=== PATIENT | female | born 1985 | race Caucasian/White ===

== ENCOUNTER 2018-07-01 16:25 | Emergency (ER) | payer OTHER ==
--- NOTE | 2018-07-01 18:40 | ED ---
Upper Extremity Pain - HPI Summary HPI Summary: 33-year-old female presents with numbness to bilateral hands for the past couple months. she states greatest in her right thumb. She is right-handed. She works as a math and sciences department chair. She states sometimes her hands go numb while she is working an is unable to use them. she has sharp pain and weakness with the numbness occasionally. No tingling. He states the pain sometimes radiates up her arm. Denies any neck pain. No injury. She is currently 27 weeks . Normal movement. Denies any contractions or vaginal bleeding. No injury. - History of Current Complaint Chief Complaint: EDGeneral Stated Complaint: PAIN AND SWELLING IN BOTH HANDS PER PT Time Seen by Provider: 07/01/18 17:36 - Allergies/Home Medications Allergies/Adverse Reactions: Allergies Allergy/AdvReac Type Severity Reaction Status Date / Time Sulfa (Sulfonamide Allergy Nausea And Verified 07/01/18 16:44 Antibiotics) Vomiting PMH/Surg Hx/FS Hx/Imm Hx Endocrine/Hematology History: Denies: Hx Anticoagulant Therapy Cardiovascular History: Denies: Hx Myocardial Infarction Infectious Disease History: No Infectious Disease History: Denies: Traveled Outside the [place] in Last 30 Days - Family History Known Family History: Positive: Non-Contributory - Social History Alcohol Use: None Substance Use Type: Reports: None Smoking Status (MU): Smoker, Current Status Unknown Review of Systems Negative: Fever Negative: Chest Pain Negative: Shortness Of Breath Positive: Other - parasethesia in hands All Other Systems Reviewed And Are Negative: Yes Physical Exam Triage Information Reviewed: Yes Vital Signs On Initial Exam: Initial Vitals Temp Pulse Resp BP Pulse Ox 97.2 F 82 20 121/57 97 07/01/18 16:41 07/01/18 16:41 07/01/18 16:41 07/01/18 16:41 07/01/18 16:41 Vital Signs Reviewed: Yes Appearance: Positive: Well-Appearing Skin: Positive: Warm, Dry Head/Face: Positive: Normal Head/Face Inspection Eyes: Positive: Normal, EOMI, JUAN CARLOS, Conjunctiva Clear ENT: Positive: Normal ENT inspection, Pharynx normal, TMs normal Respiratory/Lung Sounds: Positive: Clear to Auscultation, Breath Sounds Present Cardiovascular: Positive: Normal, RRR Musculoskeletal: Positive: Strength/ROM Intact - bilteral hands, Other - grossly sensation decreased in right thumb, capillary refill<2 secs, neg phalens , nontender neck, full ROM neck, able to oppose all fingers Neurological: Positive: Normal Psychiatric: Positive: Normal Diagnostics - Vital Signs Vital Signs Temp Pulse Resp BP Pulse Ox 07/01/18 16:41 97.2 F 82 20 121/57 97 - Laboratory Result Diagrams: 07/01/18 18:51 Lab Statement: Any lab studies that have been ordered have been reviewed, and results considered in the medical decision making process. Course/Dx - Course Course Of Treatment: 33-year-old female presents with numbness to bilateral hands for the past couple months. she states greatest in her right thumb. She is right-handed. She works as a math and sciences department chair. She states sometimes her hands go numb while she is working an is unable to use them. she has sharp pain and weakness with the numbness occasionally. No tingling. He states the pain sometimes radiates up her arm. Denies any neck pain. No injury. She is currently 27 weeks . Normal movement. Denies any contractions or vaginal bleeding. No injury. On exam full ROM and strength bilateral hands. Biceps reflex intact. Sensation grossly in her right thumb. Negative Phalen's. Left thumb decreased sensation in right thumb grossly. We'll give referral to orthopedic. Told to follow up with OB. Patient understands agrees with plan. - Diagnoses Differential Diagnosis/HQI/PQRI: Positive: Sprain, Other - electrolyte abnormality, carpel tunnel Provider Diagnoses: Paresthesia of both hands Discharge - Sign-Out/Discharge Documenting (check all that apply): Patient Departure Patient Received Moderate/Deep Sedation with Procedure: No - Discharge Plan Condition: Good Disposition: HOME Patient Education Materials: Paresthesia (ED) Referrals: [facility] [place] [facility] [Outside] Pierce Vines MD [Medical Doctor] - Additional Instructions: follow up with ortho or ob Return to ED if develop any new or worsening symptoms - Billing Disposition and Condition Condition: GOOD Disposition: Home
[2018-07-01 18:59] LABS: ABS Basophils 0 10^3/ul (0-0.2); ABS Eosinophils 0.1 10^3/ul (0-0.6); ABS Lymphocytes 1.5 10^3/ul (1.0-4.8); ABS Monocytes 0.7 10^3/ul (0-0.8); ABS Neutrophils 5.5 10^3/ul (1.5-7.7); ABS Nucleated RBC 0 10^3/ul; Eosinophil % 1.7 %; Hematocrit 32 % (33-41); Hemoglobin 10.4 g/dL (12.0-16.0); Lymphocyte % 19.4 %; Mean Corpuscular HGB Conc 33 g/dL (31-36); Mean Corpuscular Hemoglobin 27 pg (27-31); Mean Corpuscular Volume 81 fL (80-97); Mean Platelet Volume 7.2 fL (7.4-10.4); Nucleated Red Blood Cells % 0; Platelet Count 246 10^3/uL (150-450); Red Blood Count 3.91 10^6 /uL (3.70-4.87); Red Cell Distribution Width 15 % (10.5-15)
[2018-07-01 19:17] LABS: C Reactive Protein 9.57 mg/L (<8.01); Magnesium 1.7 mg/dL (1.9-2.7)
[2018-07-01] MEDS ORDERED: Magnesium Chloride EC TAB* 64 MG PO ONE (19:29)
[2018-07-01 20:00] LABS: Albumin 3.1 g/dL (3.2-5.2); Albumin/Globulin Ratio 1.1 (1-3); BUN/Creatinine Ratio 16.9 (8-20); Calcium 8.8 mg/dL (8.6-10.3); EGFR African American 141.2 (>60); EGFR Non-African American 116.7 (>60); Globulin 2.7 g/dL (2-4); Potassium 4.9 mmol/L (3.5-5.0); Total Bilirubin 0.4 mg/dL (0.2-1.0); Total Protein 5.8 g/dL (6.4-8.9)
[2018-07-01 20:04] LABS: TSH (Thyroid Stimulating Horm) 1.93 mcIU/mL (0.34-5.60)
[2018-07-01 20:32] VITALS: BP 106/67
== END 2018-07-01 20:31 | disposition home or self-care (01) ==
LOC: ED 16:25
DX: O26.93 Pregnancy related conditions, unspecified, third trimester (principal); R20.2 Paresthesia of skin; Z3A.27 27 weeks gestation of pregnancy; Z88.2 Allergy status to sulfonamides
CPT/HCPCS: 36415; 80053; 83735; 84443; 85025; 86140; 99282; A9270-GY

== ENCOUNTER 2018-09-20 05:52 | Inpatient (IN) | payer OTHER ==
[2018-09-18 14:33] LABS: ABS Eosinophils 0.1 10^3/ul (0-0.6); ABS Lymphocytes 1.7 10^3/ul (1.0-4.8); ABS Monocytes 0.8 10^3/ul (0-0.8); ABS Neutrophils 5.4 10^3/ul (1.5-7.7); Eosinophil % 1.8 %; Hematocrit 31 % (35-47); Hemoglobin 10.4 g/dL (12.0-16.0); Lymphocyte % 21.3 %; Mean Corpuscular HGB Conc 34 g/dL (31-36); Mean Corpuscular Hemoglobin 26 pg (27-31); Mean Corpuscular Volume 77 fL (80-97); Mean Platelet Volume 8.4 fL (7.4-10.4); Nucleated Red Blood Cells % 0.1; Platelet Count 195 10^3/uL (150-450); Red Blood Count 3.98 10^6 /uL (3.70-4.87); Red Cell Distribution Width 16 % (10-15); White Blood Count 8.1 10^3/uL (3.5-10.8)
--- NOTE | 2018-09-20 04:29 | HP ---
General Information - Reason for Visit at 39 weeks EGA with Breech presentation. - General Information Maternal Age: 33 Grav: 2 Para: 0 SAB: 1 IEA: 0 Estimated Due Date: 09/27/18 Determined By: LMP Gestational Age in Weeks/Days: 39 weeks Maternal Blood Type and Rh: O Positive - Results this Serology/RPR Result: Non-Reactive Rubella Result: Non-Immune HBsAg Result: Negative HIV Result: Negative GBS Culture Result: Negative Past Medical History Delivery History: See Records Pertinent Past Medical History: See Records Past Medical History Comment: Opioid use disorder on Subutex Depression/Anxiety PTSD/ADHD Obesity Pertinent Past Surgical History: See Records Pertinent Family History: See Records - Antepartal Records Antepartal Records: Reviewed, Complicated by: - Breech presentation, on Subutex for Opioid use disorder Review of Systems Constitutional: Comfortable CV Complaint: No Respiratory: Shortness of Breath: No Gastrointestinal: No Nausea/Vomiting, Normal Bowel Movement Genitourinary: No Dysuria, No Bleeding, No Leaking Fluid Musculoskeletal: No Complaint, No Epigastric Pain Neurological: No Headache, No Visual Changes Movement: Normal Exam Allergies/Adverse Reactions: Allergies Sulfa (Sulfonamide Antibiotics) Allergy (Verified 09/16/18 11:13) Hives Temp 98.8 BP 130/70 P 72 RR 18 Lab Values - Entire Visit: Laboratory Tests 09/18/18 09/18/18 14:06 14:06 WBC 8.1 RBC 3.98 Hgb 10.4 L Hct 31 L MCV 77 L MCH 26 L MCHC 34 RDW 16 H Plt Count 195 MPV 8.4 Neut % (Auto) 67.1 Lymph % (Auto) 21.3 [place] % (Auto) 9.4 Eos % (Auto) 1.8 Baso % (Auto) 0.4 Absolute Neuts (auto) 5.4 Absolute Lymphs (auto) 1.7 Absolute Monos (auto) 0.8 Absolute Eos (auto) 0.1 Absolute Basos (auto) 0.0 Absolute Nucleated RBC 0.0 Nucleated RBC % 0.1 Blood Type O Positive Antibody Screen Negative - Measurements Height: 5 ft 4 in Weight: 215 lb Weight in lbs: 215.957181 Body Mass Index (BMI): 36.8 Pre- Weight: 140 lb Weight Gained This : 75 lbs and 0 ozs - Exam Breast: Breast Exam Deferred CVA: No CVA Tenderness Extremities: No Edema Heart: Normal Rhythm/Heart Sounds HEENT: No Significant Findings Lungs: Clear Bilaterally Rectal: Rectal Exam Deferred Reflexes: DTR 2+ Thyroid: No Thyromegaly - Abdominal Exam Abdomen Exam: Non-Tender, Fundal Height Consistent with Dates - Breech presentation confirmed by ultrasound Targeted Exam Findings See L&D Outpatient Visit Provider Note for Findings: N/A Cervical Exam: Closed Effacement: Thick Station: -2 Presenting Part: Breech Membrane Status: Intact Bleeding/Discharge: None EFM Findings - External Monitor Findings Baseline Heart Rate: 140 Contractions: None Assessment/Plan - Assessment at term Breech presentation. - Obstetrical Risk Factors Obstetrical Risk Factors: Breech - Plan Plan: IV Hydration, Antibiotic Prophylaxis, C/S Delivery - Date/Time of Admission Date of Admission: 09/20/18 Time of Admission: 07:00
[~2018-09-20 05:52] MED LIST: Buffered Lidocaine 1% SYRIN* 1 ML/SYRINGE INTRADERM ONE; Lactated Ringers 1000 ML Bag* 1,000 ML IV ONE; Lactated Ringers 1000 ML Bag* 1,000 ML IV SCH; ceFOXitin 2 GM IVPREMIX* 2 GM/50 ML BAG IVPB ONE
[2018-09-20] MEDS ORDERED: Lactated Ringers 1000 ML Bag* 1,000 ML IV SCH ×2 (06:00→10:00)
[2018-09-20] MEDS ORDERED: Sodium Citrate/Citric Acid* 15 ML UDC PO ONE (06:00)
[2018-09-20 07:15] LABS: Urine Benzodiazepine Screen None Detected (None Detect); Urine Opiates Screen None Detected (None Detect)
[2018-09-20] MEDS ORDERED: OXYTOCIN* 10 UNITS/ML 1 ML VIAL ONE (07:50)
[2018-09-20] MEDS ORDERED: Morphine PF AMP (0.5MG/ML)* 5 MG/10 ML AMP ONE (07:52)
[2018-09-20] MEDS ORDERED: Phenylephrine 40 MCG/ML SYRINGE ONE (08:22)
[2018-09-20] MEDS ORDERED: Ketorolac INJ* 30 MG/ML 1 ML VIAL ONE (08:50)
[2018-09-20] MEDS ORDERED: diPHENhydraMINE IV* 50 MG/ML 1 ml VIAL (BENADRYL) ONE (08:50)
[2018-09-20] MEDS ORDERED: EPHEDrine (Pressors)* 50 MG/ML VIAL ONE (08:50)
[2018-09-20] MEDS ORDERED: Dexamethasone IV* 4 MG/ML 1 ML (4 MG) ONE (08:50)
[2018-09-20] MEDS ORDERED: Ondansetron INJ* 2 MG/ML VIAL ONE (08:52)
[2018-09-20] MEDS ORDERED: Dibucaine 1% 28.35 GM TUBE PR PRN (09:36)
[2018-09-20] MEDS ORDERED: Tetan/Diph/Pertus SYR(Tdap)* 0.5 ML SYR(BOOSTRIX) use SYR IM ONE (09:36)
[2018-09-20] MEDS ORDERED: Witch Hazel PAD* JAR TOPICAL PRN (09:36)
[2018-09-20] MEDS ORDERED: Zolpidem TAB* 5 MG PO PRN (09:36)
[2018-09-20] MEDS ORDERED: Glycerin ADULT SUPP PR PRN (09:36)
[2018-09-20] MEDS ORDERED: Levalbuterol 0.63MG/3ML NEB* UNIT OF USE INH PRN (09:38)
[2018-09-20] MEDS ORDERED: Scopolamine 1.5 mg* PATCH TRANSDERM PRN (09:38)
[2018-09-20] MEDS ORDERED: Acetaminophen TAB* 325 MG PO PRN (09:38)
[2018-09-20] MEDS ORDERED: Naloxone* 0.4 MG/ML 1 ML VIAL IV PRN ×2 (09:38)
[2018-09-20] MEDS ORDERED: diPHENhydraMINE IV* 50 MG/ML 1 ml VIAL (BENADRYL) IV PRN (09:38)
[2018-09-20] MEDS ORDERED: DiMENhydriNATE IV* 50 MG/ML VIAL IV PUSH PRN (09:38)
[2018-09-20] MEDS ORDERED: Ondansetron INJ* 2 MG/ML VIAL IV PRN (09:38)
[2018-09-20] MEDS ORDERED: Acetaminophen IV 1GM/100ML * 1,000 MG/100 ML VIAL IVPB ONE (09:41)
[2018-09-20] MEDS ORDERED: ARIPiprazole TAB* 5 MG PO SCH (10:00)
[2018-09-20] MEDS: Buprenorphine TAB* 2 MG TAB.SL SL SCH (10:19)
[2018-09-20] MEDS: Sertraline* 50 MG TAB PO SCH (10:20)
[2018-09-20] MEDS: Simethicone TAB* 80 MG TAB.CHEW PO SCH ×3 (14:00→21:06)
[2018-09-20] MEDS ORDERED: Buprenorphine TAB* 2 MG TAB.SL SL PRN (14:53)
[2018-09-20] MEDS: Docusate CAP* 100 MG PO SCH ×2 (15:04→21:06)
[2018-09-20] MEDS: Ketorolac INJ* 30 MG/ML 1 ML VIAL IV PRN ×2 (15:52→22:15)
[2018-09-20] MEDS: Nicotine PATCH 14 MG/24 HR* PATCH TRANSDERM SCH (15:59)
[2018-09-20] MEDS: Acetaminophen IV 1GM/100ML * 100 ML IVPB SCH (18:21)
[2018-09-20] MEDS: Gabapentin CAP(*) 300 MG PO SCH (21:07)
[2018-09-20] MEDS: cloNIDine TAB* 0.1 MG PO SCH (21:07)
[2018-09-20] MEDS: ARIPiprazole TAB* 5 MG PO SCH (21:28)
[2018-09-21] MEDS: Acetaminophen IV 1GM/100ML * 100 ML IVPB SCH ×5 (00:58→18:00)
[2018-09-21] MEDS: Ketorolac INJ* 30 MG/ML 1 ML VIAL IV PRN ×3 (03:58→16:05)
[2018-09-21] MEDS: Nicotine Patch Removal NOTE FOLLOW UP SCH ×2 (06:00→16:00)
[2018-09-21 08:09] LABS: ABS Eosinophils 0.1 10^3/ul (0-0.6); ABS Lymphocytes 1.7 10^3/ul (1.0-4.8); ABS Monocytes 0.8 10^3/ul (0-0.8); ABS Neutrophils 7.6 10^3/ul (1.5-7.7); Eosinophil % 0.7 %; Hematocrit 25 % (35-47); Hemoglobin 8.2 g/dL (12.0-16.0); Lymphocyte % 16.4 %; Mean Corpuscular HGB Conc 33 g/dL (31-36); Mean Corpuscular Hemoglobin 26 pg (27-31); Mean Corpuscular Volume 79 fL (80-97); Mean Platelet Volume 8.4 fL (7.4-10.4); Platelet Count 173 10^3/uL (150-450); Red Blood Count 3.14 10^6 /uL (3.70-4.87); Red Cell Distribution Width 16 % (10-15); White Blood Count 10.2 10^3/uL (3.5-10.8)
[2018-09-21] MEDS: cloNIDine TAB* 0.1 MG PO SCH ×2 (09:00→21:25)
[2018-09-21] MEDS: Nicotine PATCH 14 MG/24 HR* PATCH TRANSDERM SCH (09:00)
[2018-09-21] MEDS: Gabapentin CAP(*) 300 MG PO SCH ×2 (09:00→21:23)
[2018-09-21] MEDS: Ferrous Gluconate TAB* 324 MG TAB PO SCH ×2 (09:00→21:25)
[2018-09-21] MEDS: Docusate CAP* 100 MG PO SCH ×3 (09:00→21:24)
[2018-09-21] MEDS: Simethicone TAB* 80 MG TAB.CHEW PO SCH ×4 (09:00→21:24)
[2018-09-21] MEDS: Sertraline* 50 MG TAB PO SCH (09:02)
[2018-09-21] MEDS: Buprenorphine TAB* 2 MG TAB.SL SL SCH (09:15)
--- NOTE | 2018-09-21 10:20 | PN ---
Progress Note - Progress Note Date of Service: 09/21/18 Note: S NO C/O'S. O AFEBRILE Vital Signs: Temp Pulse Resp BP Pulse Ox 97.9 F 94 17 117/58 98 09/21/18 08:00 09/21/18 08:00 09/21/18 09:15 09/21/18 08:00 09/21/18 08:00 FUNDUS FIRM LOCHIA LITE WOUND NON-TENDER Laboratory Results - last 24 hr 09/21/18 07:20 WBC 10.2 RBC 3.14 L Hgb 8.2 L Hct 25 L MCV 79 L MCH 26 L MCHC 33 RDW 16 H Plt Count 173 MPV 8.4 Neut % (Auto) 75.0 Lymph % (Auto) 16.4 [place] % (Auto) 7.7 Eos % (Auto) 0.7 Baso % (Auto) 0.2 Absolute Neuts (auto) 7.6 Absolute Lymphs (auto) 1.7 Absolute Monos (auto) 0.8 Absolute Eos (auto) 0.1 Absolute Basos (auto) 0.0 Absolute Nucleated RBC 0.0 Nucleated RBC % 0.0 A. PT STABLE P CONTINUE ORDERS,D/C IN 2-3 DAYS.
[2018-09-21] MEDS: Acetaminophen TAB* 325 MG PO PRN (21:25)
[2018-09-21] MEDS: ARIPiprazole TAB* 5 MG PO SCH (21:25)
[2018-09-22] MEDS: Ibuprofen TAB* 600 MG PO PRN ×4 (00:11→20:59)
[2018-09-22] MEDS: Acetaminophen TAB* 325 MG PO PRN ×4 (01:34→17:48)
[2018-09-22] MEDS: Acetaminophen IV 1GM/100ML * 100 ML IVPB SCH (05:49)
[2018-09-22] MEDS: Ferrous Gluconate TAB* 324 MG TAB PO SCH ×2 (08:59→20:59)
[2018-09-22] MEDS: Simethicone TAB* 80 MG TAB.CHEW PO SCH ×4 (08:59→21:01)
[2018-09-22] MEDS: Docusate CAP* 100 MG PO SCH ×3 (08:59→20:58)
[2018-09-22] MEDS: Sertraline* 50 MG TAB PO SCH (09:00)
[2018-09-22] MEDS: Buprenorphine TAB* 2 MG TAB.SL SL SCH (09:13)
[2018-09-22] MEDS: Gabapentin CAP(*) 300 MG PO SCH ×2 (09:30→21:00)
[2018-09-22] MEDS: cloNIDine TAB* 0.1 MG PO SCH ×2 (09:30→21:00)
[2018-09-22] MEDS: Nicotine PATCH 14 MG/24 HR* PATCH TRANSDERM SCH (11:29)
[2018-09-22] MEDS: Nicotine Patch Removal NOTE FOLLOW UP SCH (11:29)
[2018-09-22] MEDS ORDERED: Measles, Mumps,Rubella VACC* 0.5 ML/VIAL SUBCUT ONE (13:17)
--- NOTE | 2018-09-22 13:24 | PN ---
Progress Note - Progress Note Date of Service: 09/22/18 Note: S NO C/O'S. O Vital Signs: Temp Pulse Resp BP Pulse Ox 98.7 F 79 16 118/66 96 09/22/18 10:14 09/22/18 10:14 09/22/18 10:14 09/22/18 10:14 09/22/18 10:14 ABD SOFT WOUND NON-TENDER. LOCHIA LITE. A PT DOING WELL PLAN D/C IN AM.
[2018-09-22] MEDS: ARIPiprazole TAB* 5 MG PO SCH (20:59)
[2018-09-23] MEDS: Acetaminophen TAB* 325 MG PO PRN (00:14)
[2018-09-23] MEDS: Ibuprofen TAB* 600 MG PO PRN ×2 (03:11→09:25)
[2018-09-23 07:53] VITALS: BP 112/65
[2018-09-23] MEDS: Buprenorphine TAB* 2 MG TAB.SL SL SCH (09:02)
[2018-09-23] MEDS: Sertraline* 50 MG TAB PO SCH (09:04)
[2018-09-23] MEDS: Ferrous Gluconate TAB* 324 MG TAB PO SCH (09:05)
[2018-09-23] MEDS: Docusate CAP* 100 MG PO SCH (09:05)
[2018-09-23] MEDS: Simethicone TAB* 80 MG TAB.CHEW PO SCH (09:05)
[2018-09-23] MEDS: cloNIDine TAB* 0.1 MG PO SCH (09:27)
[2018-09-23] MEDS: Nicotine Patch Removal NOTE FOLLOW UP SCH (09:35)
[2018-09-23] MEDS: Nicotine PATCH 14 MG/24 HR* PATCH TRANSDERM SCH (09:35)
[2018-09-23] MEDS ORDERED: Scopolamine PATCH Remove* 1 NOTE MISC PATCH OFF PRN (09:39)
--- NOTE | 2018-09-23 10:45 | OP ---
OPERATIVE REPORT: DATE OF OPERATION: 09/20/18 DATE OF : 83 SURGEON: Baljinder Pierson MD ORTHOPEDIC NURSE PRACTITIONER SURGEON: Dr. Tinajero. ANESTHESIA: Spinal. PRE-OP DIAGNOSES: at 39 weeks, breech presentation. POST-OP DIAGNOSES: at 39 weeks, breech presentation. OPERATIVE PROCEDURE: Primary low-transverse section via breech extraction. ESTIMATED BLOOD LOSS: 600 cc. FLUIDS: She received 1800 cc of IV crystalloid fluid. URINE OUTPUT: Clear. FINDINGS: Delivery of a viable female infant with a weight of 7 pounds 3 ounces with Apgars of 6 and 8 over clear fluid in enrique breech presentation. 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 T he placenta was grossly intact with a three- vessel cord noted. Adnexa, bowel and bladder were all w ithin normal limits. DESCRIPTION OF PROCEDURE: The patient was taken to the operating room where she was identified. She was placed on the operating table where a spinal anesthetic was obtained without difficulty. She wa s prepped and draped in a normal sterile fashion in a supine position with a leftward tilt. A Pfanne nstiel skin incision was then made with a knife and carried through to the underlying layer of fascia . The fascia was nicked in the midline and extended laterally with curved Rizzo scissors. The fascia was then grasped superiorly and inferiorly with Angie clamps and dissected off sharply from the rec uts muscle. The rectus muscle was in the midline bluntly. The peritoneum was identified, grasped with pickups, and entered sharply with Metzenbaum scissors and extended superiorly and inferi lara sharply. A bladder blade was inserted into the patient's abdomen and bladder flap was created u sing Metzenbaum scissors, over which the bladder blade was then reinserted. A low-transverse uterine incision was made with a knife and extended laterally with bandage scissors. The 's breech wa s then grasped and was delivered through a breech extraction atraumatically. The 's cord was t hen clamped and cut. The infant was handed off to waiting store deli manager. Cord bloods were obtained. The placenta was removed manually. The uterus was then exteriorized and cleared of all clots and de bris using moist laparotomy sponges. All the sponges were removed from the patient's uterus. The [place] rine incision was then closed using 0-Polysorb suture in a running locked fashion with a second imbri cating layer of 0-Polysorb suture with good hemostasis noted. The uterus was then returned to the me tient's abdomen. The gutters were then cleared of all clot and debris using moist laparotomy sponges . All the sponges were removed from the patient's abdomen. The peritoneum was then closed using 3-0 Polysorb suture in a running fashion. The fascia was closed using 0-Polysorb suture in a running fa shion and the skin was closed with a 4-0 Monocryl subcuticular stitch. The patient tolerated the pro cedure well. Sponge, lap, and needle counts were correct x2. She was then transferred to the [facility] room area in stable condition. [id number]/[facility] #: [id number]
== END 2018-09-23 13:00 | disposition home or self-care (01) | DRG 540 ==
LOC: MCHOB 05:52
PROVIDERS: ADMIT Obstetrics & Gynecology; ATTEND Obstetrics & Gynecology
PROC: 4A1HXCZ Monitoring of Products of Conception, Cardiac Rate, External Approach (ICD-10-PCS; 2018-09-20)
PROC: 10D00Z1 Extraction of Products of Conception, Low, Open Approach (ICD-10-PCS; principal; 2018-09-20 07:45)
DX: O32.1XX0 Maternal care for breech presentation, not applicable or unspecified (principal); O99.324 Drug use complicating childbirth; O34.03 Maternal care for unspecified congenital malformation of uterus, third trimester; O99.214 Obesity complicating childbirth; O90.81 Anemia of the puerperium; F32.9 Major depressive disorder, single episode, unspecified; F41.0 Panic disorder [episodic paroxysmal anxiety]; O99.344 Other mental disorders complicating childbirth; F11.90 Opioid use, unspecified, uncomplicated; F43.10 Post-traumatic stress disorder, unspecified; F90.9 Attention-deficit hyperactivity disorder, unspecified type; Z3A.39 39 weeks gestation of pregnancy; Z37.0 Single live birth; Q51.3 Bicornate uterus; Z88.2 Allergy status to sulfonamides
CPT/HCPCS: 36415; 80307; 85025; 86850; 86900; 86901; 90707; A9270-GY; J0694; J1100; J1200; J1885; J2405; J2590